=== PATIENT | male | born 1950 | race Caucasian/White ===

== ENCOUNTER 2021-11-30 17:38 | Emergency (ER) | payer OTHER ==
[2021-11-30] MEDS ORDERED: MORPHINE 4 MG/ML SYR ONE (18:02)
[2021-11-30] MEDS ORDERED: ONDANSETRON 4 MG/2 ML VIAL ONE (18:02)
--- NOTE | 2021-11-30 18:24 | RAD REPORT ---
EXAM DESCRIPTION: RAD - Wrist Left 3 View - 11/30/2021 6:14 pm CLINICAL HISTORY: Left wrist pain status post injury FINDINGS: Markedly displaced comminuted fracture distal radius Avulsion fracture ulnar styloid No dislocation
[2021-11-30] MEDS ORDERED: HYDROMORPHONE HCL 0.5 MG/0.5 ML INJ ONE (18:35)
[2021-11-30] MEDS ORDERED: propofoL 200 MG/20 ML VIAL IV ONE (19:14)
[2021-11-30] MEDS ORDERED: HYDROMORPHONE HCL 1 MG/ML INJ ONE (19:27)
--- NOTE | 2021-11-30 20:15 | RAD REPORT ---
EXAM DESCRIPTION: RAD - Wrist Left 3 View - 11/30/2021 8:03 pm CLINICAL HISTORY: Left wrist pain status post injury FINDINGS: There is better alignment of the comminuted distal radial fracture when compared to x-ray earlier. No dislocation Avulsion fracture ulnar styloid
--- NOTE | 2021-11-30 20:29 | ER ---
Nurse's Notes [facility] Name: Ovidio Polo Age: 71 yrs Sex: Male : 1950 Arrival Date: 11/30/2021 Time: 17:40 Bed 3 Private MD: Diagnosis: Distal Radial Fracture Presentation: 11/30 17:55 Chief complaint: Patient states: was standing on a 5 gallon bucket, slipped off, landed iw on left wrist, obvious deformity noted. 17:55 Acuity: EDSON 3 iw 17:56 Coronavirus screen: At this time, the client does not indicate any symptoms associated iw with coronavirus-19. Ebola Screen: Patient negative for fever greater than or equal to 101.5 degrees Fahrenheit, and additional compatible Ebola Virus Disease symptoms Patient denies exposure to infectious person. Patient denies travel to an Ebola-affected area in the 21 days before illness onset. No symptoms or risks identified at this time. Initial Sepsis Screen: Does the patient meet any 2 criteria? No. Patient's initial sepsis screen is negative. Does the patient have a suspected source of infection? No. Patient's initial sepsis screen is negative. Risk Assessment: Do you want to hurt yourself or someone else? Patient reports no desire to harm self or others. Onset of symptoms was November 30, 2021. 17:56 Method Of Arrival: Wheelchair iw Historical: - Allergies: 17:56 Cipro; iw - PMHx: 17:56 Hypertensive disorder; iw - PSHx: 17:56 neck fusion; iw - Social history:: Smoking status: Patient denies any tobacco usage or history of. Screenin:08 Abuse screen: Denies threats or abuse. Denies injuries from another. Nutritional mb8 screening: No deficits noted. Tuberculosis screening: No symptoms or risk factors identified. Fall Risk None identified. Assessment: 18:04 Pain: Complains of pain in left wrist Pain does not radiate. Pain currently is 10 out mb8 of 10 on a pain scale. Quality of pain is described as aching, throbbing. Musculoskeletal: Circulation, motion, and sensation intact. Capillary refill < 3 seconds, Bony deformity noted of left wrist. 18:08 General: Appears uncomfortable, Behavior is calm, cooperative, appropriate for age. mb8 18:54 Reassessment: Patient and/or family updated on plan of care and expected duration. Pain mb8 level reassessed. Patient is alert, oriented x 3, equal unlabored respirations, skin warm/dry/pink. 19:16 General: Appears uncomfortable, Behavior is calm, cooperative. Pain: Complains of pain ha1 in left wrist Pain does not radiate. Pain currently is 8 out of 10 on a pain scale. Quality of pain is described as shooting, stabbing, Pain began 2 hours ago. Neuro: Level of Consciousness is awake, alert, obeys commands, Oriented to person, place, time, situation. Cardiovascular: Patient's skin is warm and dry. Rhythm is sinus rhythm. Respiratory: Airway is patent Trachea midline Respiratory effort is even, unlabored, Respiratory pattern is regular, symmetrical. GI: No signs and/or symptoms were reported involving the gastrointestinal system. EENT: No deficits noted. No signs and/or symptoms were reported regarding the EENT system. Musculoskeletal: left wrist bone deforminty. 20:15 Reassessment: Patient and/or family updated on plan of care and expected duration. Pain ha1 level reassessed. Patient is alert, oriented x 3, equal unlabored respirations, skin warm/dry/pink. pain 5/10. pt. able to move fingers of left arm. capillary refill less then three. Vital Signs: 18:08 BP 164 / 89; Pulse 76; Resp 20; Pulse Ox 99% ; Pain 10/10; mb8 18:53 BP 160 / 96; Pulse 70; Resp 20; Pulse Ox 97% on R/A; Pain 8/10; mb8 19:15 BP 170 / 92; Pulse 68; Resp 19 S; Pulse Ox 98% on 2 lpm NC; Weight 108.86 kg; Height 5 ha1 ft. 10 in. (177.80 cm); Pain 8/10; 19:25 Temp 98.6(O); ha1 19:44 BP 176 / 114; Pulse 82; Resp 19; Pulse Ox 97% on 2 lpm NC; ha1 19:49 BP 181 / 92; Pulse 72; Resp 19; Pulse Ox 94% on 2 lpm NC; ha1 19:55 BP 181 / 92; Pulse 74; Resp 20 S; Pulse Ox 97% on 2 lpm NC; ha1 20:00 BP 158 / 103; Pulse 76; Resp 18 S; Pulse Ox 97% on 2 lpm NC; ha1 20:05 BP 178 / 100; Pulse 74; Resp 15 S; Pulse Ox 97% on 2 lpm NC; ha1 20:10 BP 179 / 93; Pulse 72; Resp 14 S; Pulse Ox 97% on 2 lpm NC; ha1 20:15 BP 174 / 98; Pulse 74; Resp 19; Pulse Ox 97% on 2 lpm NC; ha1 19:15 Body Mass Index 34.44 (108.86 kg, 177.80 cm) ha1 ED Course: 17:40 Patient arrived in ED. mr 17:56 Triage completed. iw 17:56 Roque Carney PA is PHCP. jmm 17:56 Sudhir Chino MD is Attending Physician. jmm 17:56 Arm band placed on. iw 17:56 Inserted saline lock: 20 gauge in right forearm, using aseptic technique. 3 17:58 Ovidio Koenig, RN is Primary Nurse. mb8 18:08 Patient has correct armband on for positive identification. Bed in low position. Call mb8 light in reach. Side rails up X2. Client placed on continuous cardiac and pulse oximetry monitoring. NIBP monitoring applied. 18:17 Wrist Left (3 View) XRAY In Process Unspecified. EDMS 19:44 Assist provider with fracture care of left wrist Fracture is closed. Obvious deformity ha1 Set up for procedure. Performed by Roque SEGUNDO Immobilized with preformed splint, Post immobilization, circulation, motor and sensation Patient tolerated well. 20:04 XRAY Wrist LEFT 3 view In Process Unspecified. EDMS 20:28 Jack Gibson MD is Referral Physician. jmm 20:57 IV discontinued, intact, bleeding controlled, No redness/swelling at site. Pressure ha1 dressing applied. Administered Medications: 18:08 Drug: morphine 4 mg Route: IVP; Infused Over: 4 mins; Site: right wrist; iw 18:49 Follow up: Response: No adverse reaction mb8 18:08 Drug: Zofran (Ondansetron) 4 mg Route: IVP; Site: right wrist; iw 18:49 Follow up: Response: No adverse reaction mb8 18:49 Drug: Dilaudid (HYDROmorphone) 0.5 mg Route: IVP; Site: right hand; mb8 19:40 Follow up: Response: No adverse reaction; Pain is unchanged, physician notified; RASS: ha1 Alert and Calm (0) 19:34 Drug: Dilaudid (HYDROmorphone) 1 mg {Note: RR 18 .} Route: IVP; Site: right wrist; ha1 20:00 Follow up: Response: No adverse reaction; Pain is decreased; RASS: Alert and Calm (0) ha1 19:44 Drug: Propofol 100 mg Route: IVP; Site: right wrist; ha1 20:59 Follow up: Response: No adverse reaction ha1 Medication: 18:07 VIS not applicable for this client. mb8 Outcome: 20:28 Discharge ordered by . maria e 20:55 Discharged to home ambulatory. ha1 20:55 Discharged to home via Uber ( paid by Angelika) 20:55 Condition: stable 20:55 Discharge instructions given to patient, Instructed on discharge instructions, follow up and referral plans. medication usage, Demonstrated understanding of instructions, follow-up care, medications, Prescriptions given X 1. 20:58 Patient left the ED. ha1 Signatures: Dispatcher [employer] EDMS Roque Carney PA PA jmm Rivera, Mary mr Ginger Pena, RN ROD Lolis Lawrence 3 Emily Smith RN RN [facility] Ovidio Koenig RN RN mb8 Corrections: (The following items were deleted from the chart) 19:21 19:15 BP 170 / 92; Pulse 68bpm; Resp 19bpm; Spontaneous; Pulse Ox 98% RA; 108.86 kg; ha1 Height 5 ft. 10 in.; BMI: 34.4; Pain 8/10; ha1
--- NOTE | 2021-11-30 20:29 | EDPHYS ---
Physician Documentation [facility] Name: Ovidio Polo Age: 71 yrs Sex: Male : 1950 Arrival Date: 11/30/2021 Time: 17:40 Bed 3 Private MD: ED Physician Sudhir Chino HPI: 11/30 20:24 This 71 yrs old Male presents to ER via Wheelchair with complaints of Fall Injury, jmm Wrist Injury. 20:24 Details of fall: The patient fell from a height. Onset: The symptoms/episode jmm began/occurred acutely, just prior to arrival. This is a 71 year old male with a history of htn that presents to the ED with complaints of left wrist pain beginning after a fall which occurred just prior to arrival. Patient slipped off bucket. Denies hitting his head. . Historical: - Allergies: 17:56 Cipro; iw - PMHx: 17:56 Hypertensive disorder; iw - PSHx: 17:56 neck fusion; iw - Social history:: Smoking status: Patient denies any tobacco usage or history of. ROS: 20:24 Constitutional: Negative for fever, chills, and weight loss, Cardiovascular: Negative jmm for chest pain, palpitations, and edema, Respiratory: Negative for shortness of breath, cough, wheezing, and pleuritic chest pain. 20:24 MS/extremity: Positive for pain. 20:24 All other systems are negative. Exam: 20:24 Constitutional: This is a well developed, well nourished patient who is awake, alert, jmm and in no acute distress. Head/Face: atraumatic. Eyes: EOMI, no conjunctival erythema appreciated ENT: Moist Mucus Membranes Neck: Trachea midline, Supple Chest/axilla: Normal chest wall appearance and motion. Cardiovascular: Regular rate and rhythm. No edema appreciated Respiratory: Normal respirations, no respiratory distress appreciated Abdomen/GI: Non distended Back: Normal ROM Skin: General appearance color normal 20:24 Musculoskeletal/extremity: deformity noted to the left wrist, compartments are soft, < 2 sec dist cap refill, NVI. 20:24 Skin: Appearance: Color: normal in color. 20:24 Neuro: Orientation: is normal, Mentation: is normal, Memory: is normal. 20:24 Psych: Behavior/mood is pleasant, cooperative. Vital Signs: 18:08 BP 164 / 89; Pulse 76; Resp 20; Pulse Ox 99% ; Pain 10/10; mb8 18:53 BP 160 / 96; Pulse 70; Resp 20; Pulse Ox 97% on R/A; Pain 8/10; mb8 19:15 BP 170 / 92; Pulse 68; Resp 19 S; Pulse Ox 98% on 2 lpm NC; Weight 108.86 kg; Height 5 ha1 ft. 10 in. (177.80 cm); Pain 8/10; 19:25 Temp 98.6(O); ha1 19:44 BP 176 / 114; Pulse 82; Resp 19; Pulse Ox 97% on 2 lpm NC; ha1 19:49 BP 181 / 92; Pulse 72; Resp 19; Pulse Ox 94% on 2 lpm NC; ha1 19:55 BP 181 / 92; Pulse 74; Resp 20 S; Pulse Ox 97% on 2 lpm NC; ha1 20:00 BP 158 / 103; Pulse 76; Resp 18 S; Pulse Ox 97% on 2 lpm NC; ha1 20:05 BP 178 / 100; Pulse 74; Resp 15 S; Pulse Ox 97% on 2 lpm NC; ha1 20:10 BP 179 / 93; Pulse 72; Resp 14 S; Pulse Ox 97% on 2 lpm NC; ha1 20:15 BP 174 / 98; Pulse 74; Resp 19; Pulse Ox 97% on 2 lpm NC; ha1 19:15 Body Mass Index 34.44 (108.86 kg, 177.80 cm) ha1 Procedures: 19:57 Reduction: of the left wrist, using traction, manipulation, Immobilized with sugar jmm tong. Patient tolerated well. Post reduction film - reveals improved alignment. MDM: 17:59 Patient medically screened. [facility] 20:27 Data reviewed: vital signs, nurses notes. Counseling: I had a detailed discussion with maria e the patient and/or guardian regarding: the historical points, exam findings, and any diagnostic results supporting the discharge/admit diagnosis, radiology results, the need for outpatient follow up, to return to the emergency department if symptoms worsen or persist or if there are any questions or concerns that arise at home. 11/30 17:59 Order name: Wrist Left (3 View) XRAY; Complete Time: 18:26 [facility] 11/30 19:48 Order name: XRAY Wrist LEFT 3 view; Complete Time: 20:17 ha1 11/30 18:27 Order name: Moderate Sedation; Complete Time: 20:09 [facility] Administered Medications: 18:08 Drug: morphine 4 mg Route: IVP; Infused Over: 4 mins; Site: right wrist; iw 18:49 Follow up: Response: No adverse reaction mb8 18:08 Drug: Zofran (Ondansetron) 4 mg Route: IVP; Site: right wrist; iw 18:49 Follow up: Response: No adverse reaction mb8 18:49 Drug: Dilaudid (HYDROmorphone) 0.5 mg Route: IVP; Site: right hand; mb8 19:40 Follow up: Response: No adverse reaction; Pain is unchanged, physician notified; RASS: ha1 Alert and Calm (0) 19:34 Drug: Dilaudid (HYDROmorphone) 1 mg {Note: RR 18 .} Route: IVP; Site: right wrist; ha1 20:00 Follow up: Response: No adverse reaction; Pain is decreased; RASS: Alert and Calm (0) ha1 19:44 Drug: Propofol 100 mg Route: IVP; Site: right wrist; ha1 20:59 Follow up: Response: No adverse reaction ha1 Disposition: 12/01 19:30 Co-signature as Attending Physician, Sudhir Chino MD. rn Disposition Summary: 11/30/21 20:28 Discharge Ordered Location: Home [facility] Condition: Stable [facility] Diagnosis - Distal Radial Fracture [facility] Followup: [facility] - With: Jack Gibson MD - When: 2 - 3 days - Reason: Recheck today's complaints, Continuance of care, Re-evaluation by your physician Discharge Instructions: - Discharge Summary Sheet [facility] - Colles Fracture [facility] Forms: - Medication Reconciliation Form [facility] - Thank You Letter [facility] - Antibiotic Education [facility] - Prescription Opioid Use [facility] Prescriptions: - Tylenol-Codeine #3 300 mg-30 mg Oral - take 1 tablet by ORAL route every 4-6 hours As needed; 20 tablet; Refills: 0, [facility] Product Selection Permitted Signatures: Dispatcher [employer] Roque Wright PA PA [facility] Ginger Pena RN RN Sudhir Chino MD MD rn Ayala, Heidy, RN RN ha1 Koenig, Ovidio, RN RN mb8
--- NOTE | 2021-12-01 08:28 | EKG ---
Test Date: 2021-11-30 Test Time: 19:38:58 Chuck Wagon Cook: KRISTY MEASUREMENT RESULTS: Intervals: Rate: 74 MS: 138 QRSD: 94 QT: 380 QTc: 421 [place]: P: 21 MS: 138 QRS: -7 T: -33 INTERPRETIVE STATEMENTS: Normal sinus rhythm Inferior infarct, age undetermined Possible Anterior infarct, age undetermined Abnormal ECG No previous ECG available for comparison Electronically Signed On 12-01-21 08:26:35 CDT by Farrukh Chavez
[2021-12-02 11:56] VITALS: TEMP 98.6
[2021-12-02 12:00] VITALS: O2SAT 97
[2021-12-02 12:05] VITALS: BP 174/98
== END 2021-11-30 20:58 | disposition home or self-care (01) ==
LOC: ER 17:38
PROC: 0PSJXZZ Reposition Left Radius, External Approach (ICD-10-PCS; principal; 2021-11-30)
DX: S52.502A Unspecified fracture of the lower end of left radius, initial encounter for closed fracture (principal); I10 Essential (primary) hypertension; Z88.1 Allergy status to other antibiotic agents
CPT/HCPCS: 93005; 73110 ×2; 99285; 25605; J2704; J1170 ×2; J2405